=== PATIENT | female | born 1990 | race Caucasian/White ===

== ENCOUNTER 2018-01-25 16:13 | Emergency (ER) | payer OTHER ==
[~2018-01-25] VITALS: Ht 162.6 cm; Wt 144.2 kg
[2018-01-25 16:33] VITALS: BP 137/90
[2018-01-25] MEDS ORDERED: ADALAT CC30 MG PO (16:36)
[2018-01-25] MEDS ORDERED: MOBIC7.5 MG PO (17:30)
== END 2018-01-25 18:04 | disposition home or self-care (01) ==
LOC: ER 16:13
DX: S93.492A Sprain of other ligament of left ankle, initial encounter (principal); W01.0XXA Fall on same level from slipping, tripping and stumbling without subsequent striking against object, initial encounter; Y93.89 Activity, other specified; Y92.89 Other specified places as the place of occurrence of the external cause; Y99.8 Other external cause status